=== PATIENT | female | born 1980 | race Caucasian/White ===

== ENCOUNTER 2017-11-03 11:01 | Emergency (ER) | payer OTHER ==
[~2017-11-03] VITALS: Ht 160 cm; Wt 68.0 kg
[~2017-11-03 11:01] MED LIST: ACETAMINOPHEN-1 EAC1 PO; ADDERALL 30 MG30 MG PO; ADVIL PM CAPLE1 EACH PO; AFRIN15 ML NS; AZO95 MG; BENADRYL25 MG PO; CIPROFLOXACIN500 M1 PO; CVS IBUPROFEN PO; EXCEDRIN CAPLE1 EACH PO; IBUPROFEN 600600 M1 PO; IBUPROFEN 800800 M1 PO; KEFLEX500 M1 PO; LYRICA100 MG PO; NAPROSYN500 MG PO; NORCO 5-325 TA1 EACH PO; NORTRIPTYLINE H50 MG PO; NORTRIPTYLINE H75 M1 PO; PAMELOR25 MG PO; PEPCID20 MG PO; PERCOCET 5-3251 EACH PO; PERCOCET 7.5-31 EACH PO; PHENTERMINE H37.5 M1 PO; TRAMADOL 50 MG50 MG PO; TRAZODONE 150150 M1 PO; VALIUM5 MG PO; VICODIN 5-3001 EACH PO; ZANAFLEX4 MG PO; ZOFRAN ODT4 MG PO; ZPAK PO
[2017-11-03 12:02] LABS: URINE BILIRUBIN NEGATIVE (Negative); URINE BLOOD NEGATIVE (Negative); URINE CLARITY CLEAR; URINE COLOR YELLOW; URINE GLUCOSE-RANDOM NEGATIVE (Negative); URINE KETONES NEGATIVE (Negative); URINE LEUKOCYTES-REFLEX NEGATIVE (Negative); URINE NITRITE-REFLEX NEGATIVE (Negative); URINE PROTEIN NEGATIVE (Negative); URINE SPECIFIC GRAVITY >= 1.030 (1.005-1.030); URINE UROBILINOGEN 0.2 E.U./dl (0.2-1.0)
[2017-11-03 13:09] VITALS: BP 123/84
[2018-01-15] MEDS ORDERED: MYRBETRIQ25 MG PO (08:59)
[2018-01-15] MEDS ORDERED: VITAMIN D3400 UNIT PO (08:59)
[2018-01-15] MEDS ORDERED: VITAMIN B-12500 MCG PO ×2 (09:00→09:01)
[2018-01-15] MEDS ORDERED: IRON325 PO (09:01)
[2018-01-15] MEDS ORDERED: PROTONIX40 M2 PO (09:01)
[2018-01-15] MEDS ORDERED: VALIUM5 MG PO (09:01)
[2018-01-15] MEDS ORDERED: SLEEP AID25 M1 PO (09:02)
[2018-01-15] MEDS ORDERED: CRANBERRY200 MG PO (09:02)
== END 2017-11-03 13:16 | disposition home or self-care (01) ==
LOC: M.ERS 11:01
PROVIDERS: Physician Assistant
DX: N93.9 Abnormal uterine and vaginal bleeding, unspecified (principal); R10.84 Generalized abdominal pain; K58.9 Irritable bowel syndrome, unspecified; M79.7 Fibromyalgia; Z71.1 Person with feared health complaint in whom no diagnosis is made; Z98.890 Other specified postprocedural states; Z91.040 Latex allergy status

== ENCOUNTER → 2017-11-13 | Outpatient (CLI) | payer OTHER ==
[~2017-11-13] MED LIST changes: +CRANBERRY200 MG PO; +CYCLOBENZAPRINE5 MG PO; +IRON325 PO; +MIRALAX17 GM PO; +MYRBETRIQ25 MG PO; +PROTONIX40 M2 PO; +SLEEP AID25 M1 PO; +VITAMIN B-12500 MCG PO; +VITAMIN D3400 UNIT PO; +ZOFRAN4 MG PO
== END ==
LOC: M.ULTRA 11-07 13:44
DX: N83.01 Follicular cyst of right ovary (principal); N83.02 Follicular cyst of left ovary; N88.8 Other specified noninflammatory disorders of cervix uteri

== ENCOUNTER → 2018-01-15 | Outpatient (CLI) | payer OTHER ==
[2018-01-15 09:39] LABS: ABSOLUTE EOSINOPHILS 0.1 thou/uL (0.0-0.7); ABSOLUTE LYMPHOCYTES 1.8 thou/uL (0.8-5.3); ABSOLUTE MONOCYTES 0.4 thou/uL (0.0-1.2); ABSOLUTE NEUTROPHILS 4.3 thou/uL (1.6-8.1); BASOPHILS 0.5 %; HEMATOCRIT 40.8 % (37.0-47.0); HEMOGLOBIN 13.5 gm/dL (12.0-15.0); LYMPHOCYTES 27.4 %; MCH 28.4 pg (26.0-34.0); MCHC 33.1 g/dL (28.0-37.0); MPV 7.2 fl. (7.2-11.1); NUCLEATED RBCS 0 /100WBC; PLATELET COUNT* 345 thou/uL (150-400); POLYS 65.1 %; RBC 4.74 mil/uL (4.20-5.00); RDW-CV 16.9 % (10.5-14.5); WBC 6.6 thou/uL (4.0-11.0)
[2018-01-15 09:49] LABS: ALBUMIN 3.8 g/dL (3.4-5.0); CALCIUM 9.3 mg/dL (8.5-10.1); CREATININE 0.7 mg/dL (0.6-1.3); POTASSIUM 3.8 mmol/L (3.5-5.1); TOTAL BILIRUBIN 0.5 mg/dL (<0.1-1.0); TOTAL PROTEIN 7.2 g/dL (6.4-8.2)
== END ==
LOC: M.LAB 09:20
PROVIDERS: Specialist
DX: Z01.818 Encounter for other preprocedural examination (principal); N92.1 Excessive and frequent menstruation with irregular cycle

== ENCOUNTER 2018-01-22 06:14 | Inpatient (IN) | payer OTHER ==
[~2018-01-22] VITALS: Ht 157.5 cm; Wt 79.4 kg
--- NOTE | ~2018-01-22 | OP ---
[address] [address] OPERATIVE REPORT Name: TED ORELLANA Room: [address] IN .R.#: [id number] Admission: 01/22/18 Attend Phys: Batool Sood Discharge: Date of : 82 Report #: [id number] THIS REPORT FOR: //name// For details of the operative report, please see the post operative note. By: [id number] Records Staff [facility]
[~2018-01-22 06:14] MED LIST changes: -CYCLOBENZAPRINE5 MG PO; -MIRALAX17 GM PO; -ZOFRAN4 MG PO
[2018-01-22 07:09] VITALS: BP 99/62
[2018-01-22 13:30] VITALS: BP 101/71
[2018-01-22 17:41] VITALS: BP 103/76
[2018-01-22 23:59] VITALS: BP 95/66
[2018-01-23 01:53] VITALS: BP 119/83
[2018-01-23 04:17] VITALS: BP 108/67
[2018-01-23 04:25] LABS: HEMATOCRIT 27.7 % (37.0-47.0); HEMOGLOBIN 9.6 gm/dL (12.0-15.0)
[2018-01-23 08:00] VITALS: BP 87/46
[2018-01-23 11:40] VITALS: BP 75/38
[2018-01-23 13:33] LABS: HEMATOCRIT 26.8 % (37.0-47.0); HEMOGLOBIN 8.9 gm/dL (12.0-15.0)
[2018-01-23 15:45] VITALS: BP 96/56
[2018-01-23 20:45] VITALS: BP 120/76
[2018-01-24] VITALS (8 sets, daily range): BP systolic 71–120; BP diastolic 40–80
[2018-01-24 04:15] LABS: HEMATOCRIT 22.7 % (37.0-47.0); HEMOGLOBIN 7.6 gm/dL (12.0-15.0); MCH 29.2 pg (26.0-34.0); MCHC 33.5 g/dL (28.0-37.0); MCV 87.1 fL (80.0-100.0); MPV 7.3 fl. (7.2-11.1); RBC 2.6 mil/uL (4.20-5.00); RDW-CV 16.5 % (10.5-14.5); WBC 5.4 thou/uL (4.0-11.0)
[2018-01-24 04:31] LABS: CREATININE 0.6 mg/dL (0.6-1.3); POTASSIUM 3.3 mmol/L (3.5-5.1)
--- NOTE | 2018-01-24 10:52 | S ---
[address] [address] SURGICAL PATH RPT PROCEDURE Name: LAY CUEVAS Room: [address] IN .R.#: [id number] Admission: 01/22/18 Date of : 82 Discharge: Report #: [id number] Path Case #: [id number] PATHOLOGY REPORT COLLECTION DATE: 01/22/2018 RECEIVED DATE: 01/22/2018 SUBMITTING PHYS: Dr. Varghese Paulino OTHER PHYS: Mireya Blair, ANP Dr. Galen Duenas SPECIMEN(S) RECEIVED: A.Uterus and bilateral fallopian tubes * * * * * * * * * * * * FINAL DIAGNOSIS: Uterus and bilateral fallopian tubes: 157 gram uterus (including cervix and without bilateral adnexa) with: Myometrium: - Anterior and posterior adenomyosis. Endometrium: - Proliferative pattern, negative for hyperplasia and atypia. Cervix: - Prominent Nabothian cysts, negative for dysplasia. Bilateral fimbriated fallopian tubes: - Negative for malignancy. (AMIRA:mgr; 01/24/2018) PATHOLOGIST: Yfn Gómez M.D. REPORT ELECTRONICALLY SIGNED BY: Yfn Gómez M.D. DATE/TIME: 01/24/2018 10:51 * * * * * * * * * * * * GROSS PATHOLOGY: The specimen is received in formalin, labeled "Lay Cuevas, uterus and bilateral fallopian tubes," and consists of a uterus with attached cervix measuring 10.5 x 6.4 x 5.2 cm and weighing 157 g. Received separately in the same container are 2 fimbriated segments of fallopian tube. The uterine serosa is purple-foss, smooth, and shiny. The slitlike 1.2 cm cervical os is surrounded by foss and glistening ectocervical mucosa. The uterus is bivalved to reveal a foss-pink, hemorrhagic, and grooved endocervical canal measuring 3.6 cm in length. The endometrial cavity is triangular measuring 4.9 x 3.6 cm. The endometrium is foss-pink, hemorrhagic, and averages 0.3 cm thick. Serial sectioning reveals a pink and foss myometrium measuring up to 2.1 cm thick and no mass lesions. The first detached fimbriated fallopian tube measures 6.6 cm in length and up to 0.7 cm in diameter. [place] [address] SURGICAL PATH RPT PROCEDURE Name: LAY CUEVAS Room: [address]#: [id number] Admission: 01/22/18 Date of : 82 Discharge: Report #: [id number] Path Case #: [id number] and smooth. Sectioning reveals a central lumen. The second detached fallopian tube measures 6.0 cm in length and up to 0.8 cm in diameter. It is differentially inked black and sectioned to reveal a central lumen. The serosal surface is purple and smooth. Inspector Cold Working sections are submitted as follows: A1: Anterior cervix A2: Posterior cervix A3: Anterior endomyometrium A4: Posterior endomyometrium A5: First detached fallopian tube A6: Second detached fallopian tube (SDY; 01/23/2018) CLINICAL HISTORY: Menometrorrhagia, dysmenorrhea INITIAL CPT CODE(S): A; 65854 Professional services performed by [facility] at [facility], [facility] [address], [place] [address]. Technical services performed by [facility] at [address] [place] [address], [address], [place] [address]. [facility] [address] [place] [address] PHONE: [phone] DIRECTOR: Omi Jamison M.D. * * * END OF REPORT * * *
[2018-01-24 15:25] LABS: HEMATOCRIT 29.7 % (37.0-47.0)
[2018-01-24 15:26] LABS: HEMOGLOBIN 10.2 gm/dL (12.0-15.0)
[2018-01-25 04:36] VITALS: BP 95/61
[2018-01-25 05:47] LABS: ABSOLUTE MONOCYTES 0.7 thou/uL (0.0-1.2); ABSOLUTE NEUTROPHILS 5.2 thou/uL (1.6-8.1); BASOPHILS 0.3 %; EOSINOPHILS 0.5 %; HEMOGLOBIN 8.5 gm/dL (12.0-15.0); LYMPHOCYTES 25.1 %; MCH 29.3 pg (26.0-34.0); MCHC 33.9 g/dL (28.0-37.0); MCV 86.4 fL (80.0-100.0); MONOCYTES 8.9 %; MPV 7.3 fl. (7.2-11.1); NUCLEATED RBCS 0 /100WBC; PLATELET COUNT* 200 thou/uL (150-400); POLYS 65.2 %; WBC 7.9 thou/uL (4.0-11.0)
[2018-01-25 06:11] LABS: ALBUMIN 2.4 g/dL (3.4-5.0); CALCIUM 8.2 mg/dL (8.5-10.1); CREATININE 0.7 mg/dL (0.6-1.3); POTASSIUM 3.4 mmol/L (3.5-5.1); TOTAL BILIRUBIN 0.3 mg/dL (<0.1-1.0); TOTAL PROTEIN 4.6 g/dL (6.4-8.2)
[2018-01-25 08:00] VITALS: BP 105/69
[2018-01-25 15:06] VITALS: BP 110/69
[2018-01-25 21:30] VITALS: BP 108/68
[2018-01-26 00:38] VITALS: BP 91/60
[2018-01-26 04:35] VITALS: BP 90/59
[2018-01-26 04:40] LABS: HEMATOCRIT 26.2 % (37.0-47.0); HEMOGLOBIN 8.8 gm/dL (12.0-15.0); MCH 29.4 pg (26.0-34.0); MCHC 33.7 g/dL (28.0-37.0); MCV 87.1 fL (80.0-100.0); MPV 7.4 fl. (7.2-11.1); RDW-CV 15.7 % (10.5-14.5); WBC 5.9 thou/uL (4.0-11.0)
[2018-01-26 08:45] VITALS: BP 104/70
[2018-01-26 17:01] VITALS: BP 113/74
[2018-01-26 20:20] VITALS: BP 113/75
[2018-01-27 00:42] VITALS: BP 94/69
[2018-01-27 04:51] VITALS: BP 90/62
[2018-01-27 08:40] VITALS: BP 90/60
[2018-01-27 11:13] VITALS: BP 90/60
[2018-01-27] MEDS ORDERED: MIRALAX17 GM PO (11:38)
[2018-01-27] MEDS ORDERED: ZOFRAN4 MG PO (11:39)
[2018-01-27] MEDS ORDERED: ZANAFLEX4 MG PO (11:43)
[2018-01-27 14:03] VITALS: BP 90/60
--- NOTE | 2018-01-28 10:18 | S ---
[address] [address] SURGICAL PATH RPT PROCEDURE Name: LAY CUEVAS Room: [address] M.R.#: [id number] Admission: 01/22/18 Date of : 82 Discharge: 01/27/18 Report #: [id number] Path Case #: [id number] PATHOLOGY REPORT COLLECTION DATE: 01/24/2018 RECEIVED DATE: 01/24/2018 SUBMITTING PHYS: Dr. Varghese Paulino OTHER PHYS: SHELLI Pendleton SPECIMEN(S) RECEIVED: A.L ovary * * * * * * * * * * * * FINAL DIAGNOSIS: A. L ovary: - Benign ovary with stromal hemorrhage, hemorrhagic corpus luteum, follicle cyst, and epithelial inclusion cysts with dystrophic calcifications. PATHOLOGIST: Adalberto Naik M.D. REPORT ELECTRONICALLY SIGNED BY: Adalberto Naik M.D. DATE/TIME: 01/28/2018 10:17 * * * * * * * * * * * * GROSS PATHOLOGY: Received in formalin labeled "Lay Cuevas, left ovary" and consists of a 5 g irregularly-shaped glistening red-pink probable ovary measuring 3.5 x 2.0 x 1.5 cm. Sectioning reveals a few underlying cystic structures that range in size from 0.3 cm-0.6 cm. The cysts contain serosanguineous fluid. The surrounding parenchyma is glistening and pink. Kiln Charger sections are submitted as A1. (FRED; 01/24/2018) CLINICAL HISTORY: Hematoma on left hemorrhagic ovarian cyst INITIAL CPT CODE(S): A; 34555 Professional services performed by [facility] at [facility] [address] [place] [address] Technical services performed by [facility] at [address] [place] [address], [facility] [address] [address]. [address] [address] SURGICAL PATH RPT PROCEDURE Name: LAY CUEVAS Room: [address]#: [id number] Admission: 01/22/18 Date of : 82 Discharge: 01/27/18 Report #: [id number] Path Case #: [id number] [facility] [address] [address] PHONE: [phone] DIRECTOR: Omi Jamison M.D. * * * END OF REPORT * * *
== END 2018-01-27 12:15 | disposition home or self-care (01) | DRG 742 ==
LOC: M.PRE → M.TBA 06:14 → M.ORTHSURG 06:14 → M.TBA 06:14 → M.PRE 09:20 → M.3W 09:53 → M.PRE 10:13 → M.ORTHSURG 13:00 → M.PRE 14:58 → M.ORTHSURG 01-27 12:15
PROVIDERS: Specialist; ADMIT Internal Medicine
PROC: 0UT90ZZ Resection of Uterus, Open Approach (ICD-10-PCS; principal; 2018-01-22)
PROC: 0UT70ZZ Resection of Bilateral Fallopian Tubes, Open Approach (ICD-10-PCS; 2018-01-22)
PROC: 0DCP0ZZ Extirpation of Matter from Rectum, Open Approach (ICD-10-PCS; 2018-01-24)
PROC: 0UB10ZZ Excision of Left Ovary, Open Approach (ICD-10-PCS; 2018-01-24)
PROC: 30233N1 Transfusion of Nonautologous Red Blood Cells into Peripheral Vein, Percutaneous Approach (ICD-10-PCS; 2018-01-24)
DX: N94.6 Dysmenorrhea, unspecified (principal); J98.11 Atelectasis; E44.0 Moderate protein-calorie malnutrition; N92.0 Excessive and frequent menstruation with regular cycle; M79.7 Fibromyalgia; M41.9 Scoliosis, unspecified; D64.9 Anemia, unspecified; K59.00 Constipation, unspecified; N32.81 Overactive bladder; Z91.040 Latex allergy status; Z79.899 Other long term (current) drug therapy; Z98.51 Tubal ligation status; Z68.32 Body mass index [BMI] 32.0-32.9, adult

== ENCOUNTER → 2018-02-05 | Outpatient (CLI) | payer OTHER ==
[~2018-02-05] MED LIST changes: +CYCLOBENZAPRINE5 MG PO; +MIRALAX17 GM PO; +ZOFRAN4 MG PO
[2018-02-05 11:07] LABS: ABSOLUTE EOSINOPHILS 0.1 thou/uL (0.0-0.7); ABSOLUTE MONOCYTES 0.5 thou/uL (0.0-1.2); ABSOLUTE NEUTROPHILS 2.9 thou/uL (1.6-8.1); BASOPHILS 0.9 %; EOSINOPHILS 1.4 %; HEMATOCRIT 31.2 % (37.0-47.0); HEMOGLOBIN 10.5 gm/dL (12.0-15.0); LYMPHOCYTES 36.2 %; MCH 29.3 pg (26.0-34.0); MCHC 33.6 g/dL (28.0-37.0); MCV 87.2 fL (80.0-100.0); MONOCYTES 8.3 %; MPV 6.3 fl. (7.2-11.1); NUCLEATED RBCS 0 /100WBC; PLATELET COUNT* 408 thou/uL (150-400); POLYS 53.2 %; RBC 3.58 mil/uL (4.20-5.00); RDW-CV 14.8 % (10.5-14.5); WBC 5.5 thou/uL (4.0-11.0)
[2018-02-05 11:21] LABS: CALCIUM 8.8 mg/dL (8.5-10.1); CREATININE 0.8 mg/dL (0.6-1.3); POTASSIUM 4.2 mmol/L (3.5-5.1)
[2018-02-05 11:26] LABS: ALBUMIN 3.1 g/dL (3.4-5.0); TOTAL BILIRUBIN 0.2 mg/dL (<0.1-1.0); TOTAL PROTEIN 5.9 g/dL (6.4-8.2)
== END ==
LOC: M.CT 09:04
PROVIDERS: Specialist
DX: J98.11 Atelectasis (principal); G89.18 Other acute postprocedural pain; M79.7 Fibromyalgia; N92.1 Excessive and frequent menstruation with irregular cycle; Z90.710 Acquired absence of both cervix and uterus

== ENCOUNTER 2018-05-09 08:12 | Emergency (ER) | payer OTHER ==
[~2018-05-09] VITALS: Ht 157.5 cm; Wt 72.6 kg
[~2018-05-09 08:12] MED LIST changes: -CYCLOBENZAPRINE5 MG PO
[2018-05-09] MEDS ORDERED: NAPROSYN500 MG PO (11:14)
[2018-05-09] MEDS ORDERED: CYCLOBENZAPRINE5 MG PO (11:14)
[2018-05-09 11:23] VITALS: BP 92/60
== END 2018-05-09 11:24 | disposition home or self-care (01) ==
LOC: M.ERS 08:12
DX: G89.29 Other chronic pain (principal); M54.5 Low back pain; R10.30 Lower abdominal pain, unspecified; M79.7 Fibromyalgia; Z98.890 Other specified postprocedural states; Z91.040 Latex allergy status

== ENCOUNTER → 2018-05-28 | Outpatient (CLI) | payer OTHER ==
[~2018-05-28] MED LIST changes: +CYCLOBENZAPRINE5 MG PO
[2018-05-28 16:59] LABS: ABSOLUTE LYMPHOCYTES 1.8 thou/uL (0.8-5.3); ABSOLUTE MONOCYTES 0.3 thou/uL (0.0-1.2); ABSOLUTE NEUTROPHILS 3.3 thou/uL (1.6-8.1); BASOPHILS 0.9 %; EOSINOPHILS 0.4 %; HEMATOCRIT 41.6 % (37.0-47.0); HEMOGLOBIN 13.9 gm/dL (12.0-15.0); LYMPHOCYTES 33.3 %; MCH 29.2 pg (26.0-34.0); MCHC 33.4 g/dL (28.0-37.0); MCV 87.2 fL (80.0-100.0); MONOCYTES 5.9 %; MPV 7.5 fl. (7.2-11.1); NUCLEATED RBCS 0 /100WBC; PLATELET COUNT* 307 thou/uL (150-400); POLYS 59.5 %; RBC 4.77 mil/uL (4.20-5.00); RDW-CV 13.8 % (10.5-14.5); WBC 5.5 thou/uL (4.0-11.0)
[2018-05-28 17:19] LABS: CALCIUM 10.1 mg/dL (8.5-10.1); CREATININE 0.7 mg/dL (0.6-1.3); POTASSIUM 3.5 mmol/L (3.5-5.1)
[2018-05-28 18:14] LABS: ESR (SEDRATE) 2 mm/hr (0-20)
[2018-05-30 13:09] LABS: ANTI-DNA SCREEN 1 IU/mL (0-9); ANTI-RNP <0.2 AI (0.0-0.9)
== END ==
LOC: M.LAB 16:37
PROVIDERS: Registered Nurse Diabetes Educator
DX: M79.7 Fibromyalgia (principal); M53.83 Other specified dorsopathies, cervicothoracic region; M54.10 Radiculopathy, site unspecified

== ENCOUNTER → 2018-07-04 | Outpatient (CLI) | payer OTHER | LOC: M.LAB 09:48 | DX: M41.9 Scoliosis, unspecified (principal); M79.7 Fibromyalgia; R29.898 Other symptoms and signs involving the musculoskeletal system ==

== ENCOUNTER → 2018-07-16 | Outpatient (CLI) | payer OTHER | LOC: M.MRI 07-04 11:09 | DX: M51.24 Other intervertebral disc displacement, thoracic region (principal); R29.898 Other symptoms and signs involving the musculoskeletal system; M47.894 Other spondylosis, thoracic region; M41.9 Scoliosis, unspecified; M79.7 Fibromyalgia ==

== ENCOUNTER → 2018-09-23 | Outpatient (CLI) | payer OTHER ==
[2018-09-23 13:55] LABS: ABSOLUTE EOSINOPHILS 0.1 thou/uL (0.0-0.7); ABSOLUTE LYMPHOCYTES 1.6 thou/uL (0.8-5.3); ABSOLUTE MONOCYTES 0.5 thou/uL (0.0-1.2); ABSOLUTE NEUTROPHILS 5.7 thou/uL (1.6-8.1); BASOPHILS 0.6 %; HEMATOCRIT 40.1 % (37.0-47.0); HEMOGLOBIN 13.3 gm/dL (12.0-15.0); LYMPHOCYTES 20.3 %; MCH 29.6 pg (26.0-34.0); MCHC 33.2 g/dL (28.0-37.0); MCV 89.2 fL (80.0-100.0); MONOCYTES 6.8 %; MPV 7.3 fl. (7.2-11.1); NUCLEATED RBCS 0 /100WBC; PLATELET COUNT* 302 thou/uL (150-400); POLYS 71.3 %; RDW-CV 13.6 % (10.5-14.5)
[2018-09-23 14:05] LABS: ALBUMIN 3.9 g/dL (3.4-5.0); DIRECT BILIRUBIN 0.1 mg/dL (<0.1-0.3); TOTAL BILIRUBIN 0.7 mg/dL (<0.1-1.0); TOTAL PROTEIN 7.3 g/dL (6.4-8.2)
== END ==
LOC: M.LAB 13:06
PROVIDERS: Registered Nurse Diabetes Educator
DX: Z13.88 Encounter for screening for disorder due to exposure to contaminants (principal); R10.13 Epigastric pain; R11.0 Nausea

== ENCOUNTER → 2019-05-06 | Outpatient (CLI) | payer OTHER ==
[2019-05-06 10:03] LABS: ABSOLUTE LYMPHOCYTES 1.3 thou/uL (0.8-5.3); ABSOLUTE MONOCYTES 0.5 thou/uL (0.0-1.2); ABSOLUTE NEUTROPHILS 1.8 thou/uL (1.6-8.1); EOSINOPHILS 1.3 %; HEMATOCRIT 40.2 % (37.0-47.0); HEMOGLOBIN 13.4 gm/dL (12.0-15.0); MCH 29.7 pg (26.0-34.0); MCHC 33.4 g/dL (28.0-37.0); MCV 88.8 fL (80.0-100.0); MONOCYTES 12.3 %; MPV 7.4 fl. (7.2-11.1); NUCLEATED RBCS 0 /100WBC; PLATELET COUNT* 269 thou/uL (150-400); POLYS 49.4 %; RBC 4.53 mil/uL (4.20-5.00); WBC 3.7 thou/uL (4.0-11.0)
[2019-05-06 10:13] LABS: ALBUMIN 3.8 g/dL (3.4-5.0); CALCIUM 9.1 mg/dL (8.5-10.1); CREATININE 0.7 mg/dL (0.6-1.3); DIRECT BILIRUBIN 0.1 mg/dL (<0.1-0.3); POTASSIUM 3.9 mmol/L (3.5-5.1); TOTAL BILIRUBIN 0.7 mg/dL (<0.1-1.0); TOTAL PROTEIN 7.1 g/dL (6.4-8.2)
[2019-05-07 02:06] LABS: GLYCOHEMOGLOBIN (HGB A1C) 5.6 % (4.8-5.6)
== END ==
LOC: M.LAB 09:38
PROVIDERS: Registered Nurse Diabetes Educator
DX: Z13.1 Encounter for screening for diabetes mellitus (principal); R35.0 Frequency of micturition; E66.9 Obesity, unspecified; M79.7 Fibromyalgia; E61.1 Iron deficiency; E55.9 Vitamin D deficiency, unspecified; E53.8 Deficiency of other specified B group vitamins; Z79.899 Other long term (current) drug therapy

== ENCOUNTER → 2020-07-09 | Outpatient (CLI) | payer OTHER ==
[2020-07-09 08:06] LABS: ABSOLUTE EOSINOPHILS 0.1 thou/uL (0.0-0.7); ABSOLUTE LYMPHOCYTES 2.1 thou/uL (0.8-5.3); ABSOLUTE MONOCYTES 0.4 thou/uL (0.0-1.2); ABSOLUTE NEUTROPHILS 2.5 thou/uL (1.6-8.1); BASOPHILS 0.8 %; EOSINOPHILS 2.2 %; HEMATOCRIT 39.7 % (37.0-47.0); HEMOGLOBIN 13.6 gm/dL (12.0-15.0); LYMPHOCYTES 40.8 %; MCH 29.9 pg (26.0-34.0); MCHC 34.2 g/dL (28.0-37.0); MCV 87.4 fL (80.0-100.0); MONOCYTES 6.9 %; MPV 6.6 fl. (7.2-11.1); NUCLEATED RBCS 0 /100WBC; PLATELET COUNT* 295 thou/uL (150-400); POLYS 49.3 %; RBC 4.55 mil/uL (4.20-5.00); RDW-CV 13.6 % (10.5-14.5); WBC 5.1 thou/uL (4.0-11.0)
== END ==
LOC: M.NUC 06-29 12:53 → M.LAB 07:18 → M.NUC 07:30
PROVIDERS: ATTEND Internal Medicine Gastroenterology
DX: K92.1 Melena (principal); R11.0 Nausea; R93.89 Abnormal findings on diagnostic imaging of other specified body structures

== ENCOUNTER → 2020-09-20 | Outpatient (CLI) | payer OTHER ==
[2020-09-20 10:36] LABS: CREATININE 0.6 mg/dL (0.6-1.3)
== END ==
LOC: M.RAD 09-08 11:31
PROVIDERS: ATTEND Registered Nurse Diabetes Educator
DX: N60.02 Solitary cyst of left breast (principal); N64.3 Galactorrhea not associated with childbirth; N64.4 Mastodynia; Z79.899 Other long term (current) drug therapy

== ENCOUNTER → 2021-03-24 | Outpatient (CLI) | payer OTHER | LOC: M.RAD 09:00 | PROVIDERS: ATTEND Registered Nurse Diabetes Educator | DX: N63.22 Unspecified lump in the left breast, upper inner quadrant (principal); N60.02 Solitary cyst of left breast ==

== ENCOUNTER → 2021-06-24 | Outpatient (CLI) | payer OTHER | LOC: M.MRI 06-15 11:45 | PROVIDERS: ATTEND Registered Nurse Diabetes Educator | DX: N60.01 Solitary cyst of right breast (principal); N60.02 Solitary cyst of left breast; N63.20 Unspecified lump in the left breast, unspecified quadrant; N63.10 Unspecified lump in the right breast, unspecified quadrant ==